=== PATIENT | male | born 1965 | race Caucasian/White ===

== ENCOUNTER 2021-04-23 09:35 | Emergency (ER) | payer OTHER ==
[2021-04-23] MEDS ORDERED: Ibuprofen 600 MG Tab PO ONE (14:07)
[2021-04-23] MEDS ORDERED: Acetaminophen 500 MG Tab PO ONE (14:10)
[2021-04-23] MEDS ORDERED: Ondansetron 4 MG Tab.DIS PO ONE (14:13)
--- NOTE | 2021-04-23 14:13 | EDM.PDOC ---
ED HPI GENERAL MEDICAL PROBLEM - General Chief Complaint: Head Injury Stated Complaint: HEAD INJURY Time Seen by Provider: 04/23/21 10:06 Source of Information: Reports: Patient History Limitations: Reports: No Limitations - History of Present Illness INITIAL COMMENTS - FREE TEXT/NARRATIVE: 55-year-old male no relevant past medical history presents for closed head injury. Patient was working on a truck when the bumper fell off and hit him in the head. He denies LOC. He denies any bleeding. He is not on blood thinners. He notes feeling dazed afterwards and notes nausea and headache currently head Pain Score (Numeric/FACES): 6 - Related Data Allergies Allergy/AdvReac Type Severity Reaction Status Date / Time No Known Allergies Allergy Verified 04/23/21 14:00 Home Meds: Home Meds . [No Known Home Meds] 04/23/21 [History] Past Medical History - Past Health History Medical/Surgical History: Denies Medical/Surgical History HEENT History: Reports: None Cardiovascular History: Reports: None Respiratory History: Reports: None Gastrointestinal History: Reports: None Genitourinary History: Reports: None Musculoskeletal History: Reports: None Neurological History: Reports: None Psychiatric History: Reports: None Endocrine/Metabolic History: Reports: None Hematologic History: Reports: None Immunologic History: Reports: None Oncologic (Cancer) History: Reports: None Dermatologic History: Reports: None - Infectious Disease History Infectious Disease History: Reports: None - Past Surgical History Head Surgeries/Procedures: Reports: None Social & Family History - Family History Family Medical History: No Pertinent Family History - Tobacco Use Tobacco Use Status *Q: Never Tobacco User Second Hand Smoke Exposure: No - Caffeine Use Caffeine Use: Reports: None - Recreational Drug Use Recreational Drug Use: No ED ROS GENERAL - Review of Systems Review Of Systems: Comprehensive ROS is negative, except as noted in HPI. ED EXAM, HEAD INJURY - Physical Exam Exam: See Below Exam Limited By: No Limitations General Appearance: Alert, WD/WN, No Apparent Distress Head: Normocephalic, Other (left frontal hematoma) Nexus Criteria: No: Posterior, Midline Cervical Tenderness, Evidence of Intoxication, Altered Level of Consciousness, Focal Neurological Deficit, Painful Distraction Injuries Eyes: Bilateral Eye: EOMI, PERRL Ears: Hearing Grossly Normal Throat/Mouth: Normal Voice, No Airway Compromise Neck: Non-Tender Respiratory: No Respiratory Distress, Lungs Clear, Normal Breath Sounds, No Accessory Muscle Use Cardiovascular: Normal Peripheral Pulses, Regular Rate, Rhythm Extremities: Normal Inspection Neurologic: director compliance II-XII nml As Tested, No Motor/Sensory Deficits, Alert, Normal Mood/Affect, Oriented x 3 Skin: Normal Color, Warm/Dry Course - Vital Signs Last Recorded V/S: Last Vital Signs Temp 97.8 F 04/23/21 13:54 Pulse 91 04/23/21 15:13 Resp 18 04/23/21 15:13 BP 130/73 04/23/21 15:13 Pulse Ox 97 04/23/21 15:13 - Orders/Labs/Meds Meds: Medications Discontinued Medications Generic Name Dose Route Start Last Admin Trade Name Freq PRN Reason Stop Dose Admin Acetaminophen 1,000 mg 04/23/21 14:10 04/23/21 14:39 Acetaminophen 500 Mg Tab PO 04/23/21 14:11 1,000 mg ONETIME ONE Administration Ibuprofen 600 mg 04/23/21 14:07 04/23/21 14:40 Ibuprofen 600 Mg Tab PO 04/23/21 14:08 600 mg ONETIME ONE Administration Ondansetron HCl 4 mg 04/23/21 14:13 04/23/21 14:40 Ondansetron 4 Mg Tab.Dis PO 04/23/21 14:14 4 mg ONETIME ONE Administration - Re-Assessments/Exams Free Text/Narrative Re-Assessment/Exam: 04/23/21 14:[address] to r/o intracranial pathology. Will give tylenol/motrin for pain. 04/23/21 15:[address] is unremarkable. Patient is feeling better after medications. Will discharge home with PMD follow-up as needed. Departure - Departure Time of Disposition: 15:32 Disposition: Home, Self-Care 01 Condition: Good Clinical Impression: Closed head injury Qualifiers: Encounter type: initial encounter Qualified Code(s): S09.90XA - Unspecified injury of head, initial encounter - Discharge Information Instructions: Head Injury, Adult Referrals: PCP,Not In Area [Primary Care Provider] - Forms: ED Department Discharge Additional Instructions: The following information is given to patients seen in the emergency department who are being discharged to home. This information is to outline your options for follow-up care. We provide all patients seen in our emergency department with a follow-up referral. The need for follow-up, as well as the timing and circumstances, are variable depending upon the specifics of your emergency department visit. If you don't have a primary care physician on staff, we will provide you with a referral. We always advise you to contact your personal physician following an emergency department visit to inform them of the circumstance of the visit and for follow-up with them and/or the need for any referrals to a consulting specialist. The emergency department will also refer you to a specialist when appropriate. This referral assures that you have the opportunity for follow-up care with a specialist. All of these measure are taken in an effort to provide you with optimal care, which includes your follow-up. Under all circumstances we always encourage you to contact your private physician who remains a resource for coordinating your care. When calling for follow-up care, please make the office aware that this follow-up is from your recent emergency room visit. If for any reason you are refused follow-up, please contact the [facility] Emergency Department at and asked to speak to the emergency department charge nurse. Please follow up with your primary care physician. If you do not have a primary care physician, see below: [facility] [address] [place] [id number] [facility] [address] [place] [id number] [facility] [address] [place] [id number] Sepsis Event Note (ED) - Evaluation Sepsis Screening Result: No Definite Risk - Focused Exam Vital Signs: Vital Signs Temp Pulse Resp BP Pulse Ox 04/23/21 15:13 91 18 130/73 97 04/23/21 13:54 97.8 F 64 18 140/71 97
--- NOTE | 2021-04-23 15:25 | CT ---
INDICATION: Head injury with headache. TECHNIQUE: CT head without contrast. COMPARISON: None. FINDINGS: CSF spaces: Within normal limits for age. 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 The sanchez-white differentiation is normal. No sign of mass, hemorrhage, or midline shift. No extra-axial fluid collection. Skull base and calvarium: The visualized paranasal sinuses and mastoid air cells demonstrate no acute or significant findings. The visualized orbits are grossly unremarkable. No skull fractures. IMPRESSION: No sign of acute injury. No specific finding to explain headaches. Please note that all CT scans at this facility use dose modulation, iterative reconstruction, and/or weight-based dosing when appropriate to reduce radiation dose to as low as reasonably achievable. Dictated by Sunil Agustin MD @ 04/23/2021 3:24:26 PM (Electronically Signed)
== END 2021-04-23 15:40 | disposition home or self-care (01) ==
LOC: MW.ED 09:35
DX: S00.83XA Contusion of other part of head, initial encounter (principal); W18.09XA Striking against other object with subsequent fall, initial encounter
CPT/HCPCS: 70450; 99283; A9270